=== PATIENT | female | born 1975 | race African-American/Black ===

== ENCOUNTER 2024-07-12 08:40 | Emergency (ER) | payer OTHER ==
[~2024-07-12] VITALS: Ht 170.2 cm; Wt 123.6 kg
[2024-07-12] MEDS ORDERED: METFORMIN HCL500 M1 PO (08:58)
[2024-07-12] MEDS ORDERED: LISINOPRIL10 MG PO (08:58)
[2024-07-12] MEDS: IBUPROFEN 600 MG TAB PO STA (09:14)
[2024-07-12] MEDS ORDERED: CORICIDIN HBP1 EAC3 PO (09:51)
[2024-07-12] MEDS ORDERED: DOXYCYCLINE HY100 MG PO (09:59)
[2024-07-12 10:00] VITALS: PULSE 114; RESP 18; TEMP 99.1; O2SAT 96
== END 2024-07-12 10:07 | disposition home or self-care (01) ==
LOC: FSED 08:46
DX: R05.9 Cough, unspecified (principal); J06.9 Acute upper respiratory infection, unspecified; L03.311 Cellulitis of abdominal wall; I10 Essential (primary) hypertension; E11.9 Type 2 diabetes mellitus without complications; Z11.52 Encounter for screening for COVID-19
CPT/HCPCS: 0223U; 71046; 81003; 81025; 99284

== ENCOUNTER 2025-03-02 20:40 | Emergency (ER) | payer OTHER ==
[~2025-03-02] VITALS: Ht 170.2 cm; Wt 108.0 kg
[~2025-03-02 20:40] MED LIST: CORICIDIN HBP1 EAC3 PO; DOXYCYCLINE HY100 MG PO; LISINOPRIL10 MG PO; METFORMIN HCL500 M1 PO
[2025-03-02 20:48] VITALS: PULSE 121; RESP 18; TEMP 98.5
[2025-03-02 23:03] VITALS: BP 146/82; PULSE 118; RESP 18; TEMP 98.5; O2SAT 97
== END 2025-03-02 23:03 | disposition home or self-care (01) ==
LOC: FSED 21:05
DX: S86.811A Strain of other muscle(s) and tendon(s) at lower leg level, right leg, initial encounter (principal); I10 Essential (primary) hypertension; E11.9 Type 2 diabetes mellitus without complications
CPT/HCPCS: 93971; 99283